=== PATIENT | male | born 1995 | race African-American/Black ===

== ENCOUNTER 2019-01-27 19:14 | Emergency (ER) | payer OTHER ==
[2019-01-27 19:47] LABS: #Eosinphils 0.4 thou/uL (0.0-0.7); #Lymphocytes 2.1 thou/uL (1.20-3.40); #Monocytes 0.8 thou/uL (0.11-0.59); #Neutrophils 3.7 thou/uL (1.40-6.50); %Basophils 0.7 % (0.0-1.0); %Eosinophils 5.4 % (0.0-10.0); %Lymphocytes 30.4 % (21.0-51.0); %Monocytes 10.9 % (0.0-10.0); %Neutrophils 52.7 % (42.0-75.0); Hemoglobin 14.4 g/dL (14.0-18.0); Mean Corpuscular HGB CONC 30.9 g/dL (32.0-36.0); Mean Corpuscular Hemoglobin 22.2 pg (27.0-31.0); Mean Corpuscular Volume 71.9 fL (78.0-98.0); Mean Platelet Volume 11.1 fL (7.4-10.4); Platelet Count 164 thou/uL (130-400); RBC Distribution Width 14.1 % (11.5-14.5); Red Blood Cell (RBC) Count 6.48 mill/uL (4.70-6.10)
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
[2019-01-27 19:59] LABS: Hypochromia SLIGHT = 6-15 cells (100X) (0-5/hpf); MDiff Complete? YES; Microcytosis SLIGHT = 6-15 cells (100X) (0-5/hpf); Platelet Morphology Comment Appears Adequate
[2019-01-27 20:39] LABS: ALT (SGPT) 22 U/L (8-55); AST (SGOT) 33 U/L (5-34); Albumin 4.9 g/dL (3.5-5.0); Alcohol Less than 10 mg/dL (Less than 10); Alkaline Phosphatase 78 U/L (40-150); Anion Gap 11 mmol/L (10-20); BUN (Urea Nitrogen) 11 mg/dL (8.9-20.6); Bilirubin, Total 0.5 mg/dL (0.2-1.2); Calc. Creatinine Clearance 0 mL/min (70-130); Calcium 10.1 mg/dL (7.8-10.44); Carbon Dioxide 27 mmol/L (22-29); Chloride 101 mmol/L (98-107); Estimated GFR-MDRD Greater than 90; Globulin 3.5 g/dL (2.4-3.5); Glucose 99 mg/dL (70-105); Protein, Total 8.4 g/dL (6.0-8.3); Sodium 136 mmol/L (136-145)
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
[2019-01-27] MEDS ORDERED: Morphine 4 MG/ML VIAL ONE (20:56)
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
[2019-01-27] MEDS ORDERED: Acetaminophen 500 MG TAB ONE (21:16)
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
== END 2019-01-27 21:30 | disposition home or self-care (01) ==
LOC: ERS 19:14
DX: R51 Headache (principal); V49.9XXA Car occupant (driver) (passenger) injured in unspecified traffic accident, initial encounter
CPT/HCPCS: 70450; 71045; 72125; 72170; 80053; 80307; 85025; 96374; J2270

== ENCOUNTER 2021-06-22 10:02 | Outpatient (CLI) | payer OTHER | END 2021-06-22 10:03 | disposition home or self-care (01) | LOC: BICRAD 10:02 | PROVIDERS: ATTEND Chiropractor | DX: R07.9 Chest pain, unspecified (principal) | CPT/HCPCS: 71046 ==

== ENCOUNTER 2021-07-30 11:54 | Emergency (ER) | payer OTHER ==
[2021-07-30 21:58] LABS: SARS-CoV-2 PCR by NAA DETECTED (NotDetected)
== END 2021-07-30 13:20 | disposition home or self-care (01) ==
LOC: ERS 11:54
DX: U07.1 COVID-19 (principal)
CPT/HCPCS: 99283; U0003; U0005